=== PATIENT | male | born 1995 | race Caucasian/White ===

== ENCOUNTER 2016-11-14 19:08 | Emergency (ER) | payer BC ==
[2016-11-14 19:15] VITALS: TEMP 98.2
--- NOTE | 2016-11-14 19:28 | EDPHY ---
H & P Time Seen by Provider: 11/14/16 19:22 HPI/ROS: Chief complaint. Knee injury HPI. 21-year-old male playing volleyball. The ball was off to the side after he jumped any tried to correct in the air. Landed with his left foot somewhat inside his shoulder with and his left knee went outside. He sustained pain to the lateral aspect of his left knee. Hurts to walk. Injury occurred about 2 hours ago. No previous knee problems. ROS Constitutional. no fever/chills, no weakness Eyes. no problems with vision ENT. no sore throat, no nasal drainage Cardiovascular. no chest pain Respiratory. no shortness of breath, no cough Abdominal. no abdominal pain, no nausea/vomiting, no diarrhea . no problems urinating MS. Left knee pain Skin. no rash Lymph. no swollen glands Neuro. no headache, no dizziness, no difficulty walking or with speech Past Medical/Surgical History: Healthy Social History: Single, nonsmoker, no alcohol Smoking Status: Never smoked Physical Exam: General Appearance: Alert well-developed male mild distress vital signs stable Eyes: Pupils equal and round no pallor or injection. ENT, Mouth: Mucous membranes are moist. Respiratory: There are no retractions, lungs are clear to auscultation. Cardiovascular: Regular rate and rhythm. Gastrointestinal: Abdomen is soft and nontender, no masses, bowel sounds normal. Neurological: Awake and alert, sensory and motor exams grossly normal. Skin: Warm and dry, no rashes. Musculoskeletal: Neck is supple nontender. Extremities left knee without obvious swelling or deformity. There is tenderness to the lateral joint line. There is pain laterally with lateral stress. There does appear to be laxity in the anterior posterior direction and causes some discomfort. Distal motor vascular sensitivity is intact Psychiatric: Patient is oriented X 3, there is no agitation. Constitutional: Initial Vital Signs Temperature (C) 36.8 C 11/14/16 19:12 Heart Rate 109 H 11/14/16 19:12 Respiratory Rate 20 11/14/16 19:12 Blood Pressure 143/79 H 11/14/16 19:12 O2 Sat (%) 98 11/14/16 19:12 O2 Delivery Mode Room Air Allergies/Adverse Reactions: No Known Allergies Allergy (Unverified 11/14/16 19:12) Home Medications: Medication Instructions Recorded Hydrocodone/APAP 5/325 [Rosamond 1 each PO Q4-6PRN PRN #14 tab 11/14/16 5/325 (*)] Medical Decision Making - Diagnostics Imaging Results: X-ray left knee reviewed by me shows no evidence for fracture dislocation Procedures: Knee immobilizer is placed. Post knee immobilizer application shows good anatomic position and distal motor vascular sensitivity to be intact ED Course/Re-evaluation: Re-evaluation patient is stable. The patient and I discussed imaging studies, treatment plan including criteria for return importance of follow-up further evaluation. He expresses understanding and agreement Differential Diagnosis: I suspect that this is ligamental injury. He has laxity to the knee joint on exam. No evidence for fracture or dislocation Departure - Departure Disposition: Home, Routine, Self-Care Clinical Impression: Left knee sprain Qualifiers: Encounter type: initial encounter Involved ligament of knee: lateral collateral ligament Qualified Code(s): S83.422A - Sprain of lateral collateral ligament of left knee, initial encounter Condition: Good Instructions: Knee Sprain (ED) Additional Instructions: Ice and elevation next 24-48 hours. Ibuprofen 600 mg every 6 hours. Hydrocodone in addition for pain if needed. Return for worsening symptoms. Call orthopedist tomorrow to arrange further evaluation. Referrals: TREV MUNSON [Other] - As per Instructions Trev Marks MD [Medical Doctor] - 5-7 days, call for appt. Prescriptions: Hydrocodone/APAP 5/325 [Rosamond 5/325 (*)] 1 each PO Q4-6PRN PRN #14 tab PRN Reason: Pain, Moderate
[2016-11-14 20:16] VITALS: BP 121/70; PULSE 65; RESP 16; O2SAT 97
== END 2016-11-14 20:14 | disposition home or self-care (01) ==
DX: S83.422A Sprain of lateral collateral ligament of left knee, initial encounter (principal); X58.XXXA Exposure to other specified factors, initial encounter; Y99.8 Other external cause status; Y93.68 Activity, volleyball (beach) (court)
CPT/HCPCS: L1830